=== PATIENT | male | born 1950 | race Caucasian/White ===

== ENCOUNTER 2021-04-09 16:58 | Emergency (ER) | payer OTHER, MEDICARE ==
[~2021-04-09] VITALS: Ht 170.2 cm; Wt 94.0 kg
[2021-04-09 19:02] VITALS: BP 164/83
[2021-04-11] MEDS ORDERED: CELE-193 PO (15:16)
[2021-04-11] MEDS ORDERED: ATOR40TA PO (15:16)
[2021-04-11] MEDS ORDERED: LIDO1ADH TP (15:16)
[2021-04-11] MEDS ORDERED: LEVE500T99 PO (15:16)
[2021-04-11] MEDS ORDERED: TRIA1TAB3 PO (15:16)
[2021-04-11] MEDS ORDERED: OMEP40CA21 PO (15:16)
== END 2021-04-09 20:25 | disposition home or self-care (01) ==
LOC: ER 16:59
DX: S00.93XA Contusion of unspecified part of head, initial encounter (principal); M54.50 Low back pain, unspecified; E78.00 Pure hypercholesterolemia, unspecified; I10 Essential (primary) hypertension; Z98.890 Other specified postprocedural states; W19.XXXA Unspecified fall, initial encounter; Y93.89 Activity, other specified; Y92.89 Other specified places as the place of occurrence of the external cause; Y99.8 Other external cause status
CPT/HCPCS: 70450; 73502; 99284

== ENCOUNTER 2021-04-17 08:33 | Emergency (ER) | payer OTHER, MEDICARE ==
[~2021-04-17] VITALS: Ht 170.2 cm; Wt 95.5 kg
[~2021-04-17 08:33] MED LIST: ATOR40TA PO; CELE-193 PO; LEVE500T99 PO; LIDO1ADH TP; OMEP40CA21 PO; TRIA1TAB3 PO
[2021-04-17 09:52] VITALS: BP 153/77
[2021-04-17 09:58] LABS: CLARITY,URINE SLIGHTLY CLOUDY (Clear); COLOR,URINE YELLOW (Yellow); GLUCOSE, URINE NEGATIVE (Neg); KETONES,URINE TRACE mg/dl (Neg); LEUKOCYTE ESTERASE ,URINE NEGATIVE (Neg); NITRITES, URINE NEGATIVE (Neg); OCCULT BLOOD,URINE NEGATIVE (Neg); PH,URINE 5.5 (4.8-8.0); PROTEIN,URINE TRACE mg/dl (Neg); UROBILINOGEN,URINE 0.2 E.U/dL (0.2-1.0)
[2021-04-17 10:00] LABS: UA COLLECTION TYPE FOLEY CATH
[2021-04-17 10:08] LABS: MUCUS STRANDS MODERATE /LPF (Neg); SQUAMOUS EPITHELIAL CELL,UR FEW /LPF (FEW)
[2021-04-17 10:11] LABS: BACTERIA,URINE 1+ /HPF (Neg); RBC,URINE 0-2 /HPF (0-2); WBC,URINE 0-4 /HPF (0-4)
[2021-04-17 10:50] LABS: BASOPHILS % (AUTO) 0.1 % (0-1); EOSINOPHILS % (AUTO) 0.1 % (0-6); HEMATOCRIT 31.2 % (42.0-52.0); HEMOGLOBIN 10.8 g/dl (14.0-17.9); LYMPHOCYTES # (AUTO) 0.5 X10'3 (1.1-4.8); MEAN CORPUSCULAR HGB CONC 34.7 g/dL (33.0-36.5); MEAN CORPUSCULAR VOLUME 89.2 FL (78-98); MEAN PLATELET VOLUME 8.3 FL (7.4-10.4); MONOCYTES # (AUTO) 0.8 X10'3 (0-0.9); MONOCYTES % (AUTO) 10.2 % (2-12); NEUTROPHILS # (AUTO) 6.4 X10'3 (1.8-7.7); NEUTROPHILS % (AUTO) 82.6 % (42-75); PLATELET COUNT 329 X10'3 (140-440); RED BLOOD COUNT 3.49 X10'6 (4.70-6.10); RED CELL DISTRIBUTION WIDTH 14.3 % (11.5-14.5); WHITE BLOOD COUNT 7.8 X10'3 (4.5-11.0)
[2021-04-17 11:03] LABS: ALANINE AMINOTRANSFERASE 29 U/L (12-78); ALBUMIN 2.1 G/DL (3.4-5.0); ALBUMIN/GLOBULIN RATIO 0.5 (1.1-1.5); ALKALINE PHOSPHATASE 64 IU/L (46-116); ASPARTATE AMINO TRANSFERASE 26 U/L (10-37); BILIRUBIN,TOTAL 0.7 MG/DL (0.1-1.0); BLOOD UREA NITROGEN 28 MG/DL (7-18); BUN/CREATININE RATIO 29.5 (5.4-32.0); CREATININE 0.95 MG/DL (0.60-1.10); GLUCOSE 110 MG/DL (70-104); LIPASE < 50 U/L (73-393); MAGNESIUM 2.4 MG/DL (1.5-2.4); eGFR 79 ML/MIN
[2021-04-17 11:04] LABS: ANION GAP 9 (8-16); CHLORIDE 98 MMOL/L (99-107); POTASSIUM 4.1 MMOL/L (3.5-5.1); SODIUM 134 MMOL/L (135-145)
[2021-04-17 13:01] LABS: PLATELET ESTIMATE NORMAL; TOTAL CELLS COUNTED 100
[2021-04-17 13:02] LABS: BURR CELLS FEW; ELLIPTOCYTES 1+; SCHISTOCYTES FEW
== END 2021-04-17 12:13 ==
LOC: ER 08:34
DX: R33.9 Retention of urine, unspecified (principal); K59.00 Constipation, unspecified; E78.00 Pure hypercholesterolemia, unspecified; I10 Essential (primary) hypertension; Z79.899 Other long term (current) drug therapy
CPT/HCPCS: 36415; 51702; 74176; 80053; 81001; 83690; 83735; 85007; 85025; 99284

== ENCOUNTER 2024-03-12 08:13 | Outpatient (CLI) | payer MEDICARE, MEDICAID ==
[~2024-03-12] VITALS: Ht 170.2 cm; Wt 100.0 kg
[~2024-03-12 08:13] MED LIST changes: +LEVE500T PO; -LEVE500T99 PO; -LIDO1ADH TP; +OMEP20CA16 PO; -OMEP40CA21 PO; +PROP60TA19 PO
[2024-03-12 11:11] VITALS: BP 155/134; PULSE 65; O2SAT 97
[2024-03-12] MEDS ORDERED: nitroGLYCERIN 0.4mg SUBLingual tab SL PRN (12:00)
[2024-03-12] MEDS ORDERED: normal saline 500ml IV soln 500 ML IV ONE (12:00)
[2024-03-12] MEDS ORDERED: aminophylline 250mg/10ml inj. IV PRN (12:00)
[2024-03-12] MEDS ORDERED: atropine 0.1mg/ml 10ml syringe IV PRN (12:00)
[2024-03-12] MEDS ORDERED: regadenoson 0.4mg/5ml syringe IV ONE (12:00)
[2024-03-12] MEDS ORDERED: metoprolol tartrate 1mg/ml inj IV PRN (12:00)
== END 2024-03-12 23:59 | disposition home or self-care (01) ==
LOC: CARD DIAG 08:13
PROVIDERS: ATTEND Internal Medicine Interventional Cardiology
DX: Z01.818 Encounter for other preprocedural examination (principal); I10 Essential (primary) hypertension; R06.02 Shortness of breath; I08.8 Other rheumatic multiple valve diseases
CPT/HCPCS: 78451; A9500; C8929; J7040; 93306

== ENCOUNTER 2024-04-02 09:26 | Outpatient (CLI) | payer MEDICARE, MEDICAID ==
[2024-04-02] VITALS (8 sets, daily range): BP systolic 118–165; BP diastolic 53–63; PULSE 57–75; RESP 14–16; O2SAT 97–99
[2024-04-02] MEDS: regadenoson 0.4mg/5ml syringe IV ONE (15:14)
[2024-04-30] MEDS ORDERED: CELE-193 PO (14:32)
[2024-04-30] MEDS ORDERED: LEVE750T6 PO (14:32)
[2024-04-30] MEDS ORDERED: MILK OF MAGNESIUM PO (14:32)
[2024-04-30] MEDS ORDERED: TRIA1CAP88 PO (14:32)
[2024-04-30] MEDS ORDERED: DULO-31 PO (14:32)
[2024-04-30] MEDS ORDERED: CARB1TAB35 PO (14:32)
[2024-04-30] MEDS ORDERED: DOCU-396 PO (14:32)
[2024-04-30] MEDS ORDERED: METH85CR31 TD (14:32)
[2024-04-30] MEDS ORDERED: SENN-267 PO (14:32)
[2024-04-30] MEDS ORDERED: NA P133E4 RC (14:32)
[2024-04-30] MEDS ORDERED: PROP120C54 PO (14:32)
[2024-04-30] MEDS ORDERED: OXYC5CAP22 PO (14:32)
[2024-04-30] MEDS ORDERED: FAMO-129 PO (14:32)
[2024-04-30] MEDS ORDERED: ACET-1123 PO (14:32)
[2024-04-30] MEDS ORDERED: BISA10SU60 RC (14:32)
== END 2024-04-02 23:59 | disposition home or self-care (01) ==
LOC: RAD 09:26
PROVIDERS: ATTEND Internal Medicine Interventional Cardiology
DX: Z01.818 Encounter for other preprocedural examination (principal); R06.02 Shortness of breath
CPT/HCPCS: 78452; 93017; A9500; J2785